=== PATIENT | female | born 1955 | race Caucasian/White ===

== ENCOUNTER 2018-04-21 16:11 | Outpatient (CLI) | payer BC ==
--- NOTE | 2018-04-21 16:39 | RAD ---
THREE VIEWS RIGHT SHOULDER: Date: 04-21-18 Comparison: None. History: Fall, trauma, pain. FINDINGS: Incompletely imaged anterior discectomy and fusion hardware within the lower cervical spine/cervicoth oracic junction. There is multilevel right sided cervical spine facet hypertrophy. There is no widening of the acromioclavicular or coracoclavicular interspace. There is interspace khari rowing and osteophyte formation involving the right AC joint. There is no displaced fracture or evidence of dislocation appreciated. IMPRESSION: Chronic findings as described above. No displaced fracture or evidence of dislocation seen. POS: [facility]
== END 2018-04-21 16:12 | disposition home or self-care (01) ==
LOC: MADRAD 16:11
PROVIDERS: ATTEND Family Medicine
DX: M25.511 Pain in right shoulder (principal); W19.XXXA Unspecified fall, initial encounter

== ENCOUNTER 2018-11-23 19:05 | Emergency (ER) | payer BC ==
[2018-11-23] MEDS ORDERED: Lactated Ringer's 1,000 ML ONE (19:21)
[2018-11-23 19:38] LABS: #Basophils 0.1 thou/uL (0.0-0.2); #Eosinphils 0.1 thou/uL (0.0-0.7); #Lymphocytes 1.3 thou/uL (1.20-3.40); #Monocytes 1.1 thou/uL (0.11-0.59); %Basophils 0.3 % (0.0-1.0); %Eosinophils 0.4 % (0.0-10.0); %Monocytes 5.8 % (0.0-10.0); %Neutrophils 86.4 % (42.0-75.0); Hemoglobin 16.7 g/dL (12.0-16.0); Mean Corpuscular HGB CONC 33.4 g/dL (32.0-36.0); Mean Corpuscular Hemoglobin 30.7 pg (27.0-31.0); Mean Platelet Volume 7.1 fL (7.4-10.4); Platelet Count 365 thou/uL (130-400); RBC Distribution Width 13.1 % (11.5-14.5); Red Blood Cell (RBC) Count 5.43 mill/uL (4.20-5.40); White Blood Cell (WBC) Count 18.5 thou/uL (4.8-10.8)
[2018-11-23 19:52] LABS: ALT (SGPT) 18 U/L (8-55); AST (SGOT) 13 U/L (5-34); Albumin 4.9 g/dL (3.4-4.8); Alkaline Phosphatase 84 U/L (40-150); Anion Gap 20 mmol/L (10-20); BUN (Urea Nitrogen) 17 mg/dL (9.8-20.1); Bilirubin, Total 0.8 mg/dL (0.2-1.2); Calc. Creatinine Clearance 0 mL/min (70-130); Calcium 10.1 mg/dL (7.8-10.44); Carbon Dioxide 17 mmol/L (23-31); Chloride 112 mmol/L (98-107); Estimated GFR-MDRD 35; Globulin 2.8 g/dL (2.4-3.5); Glucose 141 mg/dL (80-115); Magnesium 2.4 mg/dL (1.6-2.6); Potassium 4.6 mmol/L (3.5-5.1); Protein, Total 7.7 g/dL (6.0-8.3); Sodium 144 mmol/L (136-145)
[2018-11-23] MEDS ORDERED: Loperamide HCl 2 MG CAP ONE (20:34)
== END 2018-11-23 21:10 | disposition home or self-care (01) ==
LOC: MADERS 19:05
DX: K52.9 Noninfective gastroenteritis and colitis, unspecified (principal); K21.9 Gastro-esophageal reflux disease without esophagitis; E78.00 Pure hypercholesterolemia, unspecified; I11.0 Hypertensive heart disease with heart failure; I50.9 Heart failure, unspecified; F41.9 Anxiety disorder, unspecified; F32.9 Major depressive disorder, single episode, unspecified
CPT/HCPCS: 80053; 83735; 85025; 96360; J7120

== ENCOUNTER 2019-11-10 09:49 | Outpatient (CLI) | payer BC ==
--- NOTE | 2019-11-10 10:19 | RAD ---
XR Chest Pa Lat STANDARD HISTORY: Asthmatic bronchitis COMPARISON: 02/07/2014 FINDINGS: The heart size is normal. The lungs are well expanded without focal areas of consolidation, pneumothorax or pleural effusions. There are postop changes in the lower cervical spine. IMPRESSION: No radiographic evidence of acute cardiopulmonary process.
== END 2019-11-10 09:50 | disposition home or self-care (01) ==
LOC: MADRAD 09:49
PROVIDERS: ATTEND Family Medicine
DX: J45.909 Unspecified asthma, uncomplicated (principal)
CPT/HCPCS: 71046